=== PATIENT | male | born 1975 | race Caucasian/White ===

== ENCOUNTER 2017-11-28 04:21 | Inpatient (IN) ==
[2017-11-28 05:04] LABS: Baso % (Auto) 0.3 % (0.0-2.0); Eos # (Auto) 0.1 th/mm3 (0.0-0.4); Eos % (Auto) 1.7 % (0.0-4.0); Hematocrit 40.5 % (39.0-51.0); Hemoglobin 14.3 gm/dL (13.0-17.0); Lymph # (Auto) 1.6 th/mm3 (1.0-4.8); Lymph % (Auto) 18.1 % (9.0-44.0); Mean Corpuscular HGB Conc 35.3 % (32.0-36.0); Mean Corpuscular Hemoglobin 31.3 pg (27.0-34.0); Mean Corpuscular Volume 88.7 fL (80.0-100.0); Mean Platelet Volume 9.1 fL (7.0-11.0); Mono # (Auto) 0.5 th/mm3 (0.0-0.9); Mono % (Auto) 5.8 % (0.0-8.0); Neut # (Auto) 6.4 th/mm3 (1.8-7.7); Neut % (Auto) 74.1 % (16.0-70.0); Platelet Count 195 th/mm3 (150-450); Red Blood Count 4.56 mil/mm3 (4.50-5.90); Red Cell Distribution Width 13.3 % (11.6-17.2); White Blood Count 8.6 th/mm3 (4.0-11.0)
[2017-11-28 05:14] LABS: Activated Partial Thrombo Time 21.9 sec (24.3-30.1); Prothrombin Time 10.2 sec (9.8-11.6)
[2017-11-28 05:19] LABS: Alanine Aminotransferase 39 U/L (12-78)
[2017-11-28 05:21] LABS: Alkaline Phosphatase 81 U/L (45-117); Total Protein 7.2 g/dL (6.4-8.2)
[2017-11-28 05:23] LABS: Albumin 3.7 g/dL (3.4-5.0); Anion Gap 10 meq/L (5-15); Aspartate Aminotransferase 38 U/L (15-37); Blood Urea Nitrogen 13 mg/dL (7-18); Calcium 9.3 mg/dL (8.5-10.1); Carbon Dioxide 23.3 meq/L (21.0-32.0); Chloride 111 meq/L (98-107); Glomerular Filtration Rate 56 mL/min (>89); Glucose,Random 131 mg/dL (74-106); Sodium 144 meq/L (136-145)
[2017-11-28] MEDS ORDERED: Sod Chloride 0.9% Inj 1,000 ML IV.SIG ONE (05:29)
[2017-11-28] MEDS ORDERED: Diphtheria/Tetanus/Pertussis Vaccine Inj 0.5 ML Syringe IM ONE (05:40)
[2017-11-28] MEDS ORDERED: ceFAZolin 2 GM Premix Inj 2 GM/50 ML PIGGYBACK IV.SIG ONE (05:41)
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
[2017-11-28] MEDS ORDERED: Morphine Inj 4 MG/ML Vial IV.PUSH PRN (05:50)
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
[2017-11-28] MEDS: Pantoprazole Inj 40 MG Vial IV.PUSH SCH (06:15)
[2017-11-28] MEDS ORDERED: Pantoprazole Inj 40 MG Vial IV.PUSH SCH (07:00)
[2017-11-28] MEDS: Multivitamin Inj 10 ML, Thiamine Inj 100 MG, Folic Acid Inj 1 MG in Sodium Chlor 0.9% I... IV.SIG SCH (09:31)
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
[2017-11-28] MEDS: Sod Chloride 0.9% Inj 1,000 ML IV.CONT SCH ×2 (11:48→19:32)
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
[2017-11-28] MEDS: Morphine Inj 4 MG/ML Vial IV.PUSH PRN ×2 (13:06→21:27)
[2017-11-29] MEDS: Morphine Inj 4 MG/ML Vial IV.PUSH PRN ×2 (08:18→12:47)
[2017-11-29 09:12] LABS: Baso % (Auto) 0.2 % (0.0-2.0); Eos # (Auto) 0.1 th/mm3 (0.0-0.4); Eos % (Auto) 1.4 % (0.0-4.0); Hemoglobin 12.8 gm/dL (13.0-17.0); Lymph # (Auto) 1.2 th/mm3 (1.0-4.8); Lymph % (Auto) 19.8 % (9.0-44.0); Mean Corpuscular HGB Conc 33.8 % (32.0-36.0); Mean Corpuscular Hemoglobin 30.1 pg (27.0-34.0); Mean Corpuscular Volume 89.1 fL (80.0-100.0); Mean Platelet Volume 8.8 fL (7.0-11.0); Mono # (Auto) 0.5 th/mm3 (0.0-0.9); Mono % (Auto) 8.3 % (0.0-8.0); Neut # (Auto) 4.4 th/mm3 (1.8-7.7); Neut % (Auto) 70.3 % (16.0-70.0); Platelet Count 148 th/mm3 (150-450); Red Blood Count 4.27 mil/mm3 (4.50-5.90); Red Cell Distribution Width 13.7 % (11.6-17.2); White Blood Count 6.3 th/mm3 (4.0-11.0)
[2017-11-29 09:29] LABS: Calcium 9.2 mg/dL (8.5-10.1); Carbon Dioxide 26.5 meq/L (21.0-32.0)
[2017-11-29] MEDS: Multivitamin Inj 10 ML, Thiamine Inj 100 MG, Folic Acid Inj 1 MG in Sodium Chlor 0.9% I... IV.SIG SCH (10:22)
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
[2017-11-29] MEDS ORDERED: Lidocaine PF 1% Inj 5 ML Syringe INFILTRATN ONE ×2 (12:00)
[2017-11-29] MEDS ORDERED: Neostigmine Inj 5 MG/5 ML Syringe IV.PUSH ONE ×2 (12:00)
[2017-11-29] MEDS ORDERED: Glycopyrrolate Inj 1 MG/5 ML Syringe IV.PUSH ONE ×2 (12:00)
[2017-11-29] MEDS ORDERED: Succinylcholine Inj 100 MG/5 ML Syringe IV.PUSH ONE ×2 (12:00)
[2017-11-29] MEDS ORDERED: Phenylephrine/NS 1000 MCG/10ML Syringe IV.PUSH ONE ×2 (12:00)
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
[2017-11-29] MEDS ORDERED: *Meperidine Inj 25 MG/ML Vial PERIprocedural Use ONLY ONE (19:53)
[2017-11-29] MEDS ORDERED: fentaNYL Citrate Inj 100 MCG/2 ML Ampul ONE (20:07)
[2017-11-29] MEDS ORDERED: Acetaminophen-HYDROcodone 325/7.5 Liq 15 ML UDC PO PRN (20:15)
[2017-11-29] MEDS ORDERED: *Labetalol HCl Inj 100 MG/20 ML Vial PERIprocedural Use ONLY IV.PUSH ONE (20:37)
[2017-11-29] MEDS ORDERED: *Ondansetron Inj 4 MG/2 ML Vial PERIprocedural Use ONLY ONE (20:37)
[2017-11-29] MEDS ORDERED: Morphine Inj 4 MG/ML Vial IV.PUSH PRN (21:00)
[2017-11-29] MEDS: Dextrose 5%/NaCl 0.45% Inj 1,000 ML IV.SIG SCH (21:02)
[2017-11-29] MEDS: MethylPREDNISolone Sod Succinate Inj 125 MG/2 ML Vial IV.PUSH SCH (22:04)
[2017-11-29] MEDS: Sennosides Liq 8.8 MG/5 ML UDC PO SCH (22:30)
[2017-11-29] MEDS: Chlorhexidine Gluconate 0.12% Liq 15 ML UDC SWISH-SPIT SCH (22:30)
[2017-11-29] MEDS: Pantoprazole Inj 40 MG Vial IV.PUSH SCH (22:30)
[2017-11-29] MEDS: Sod Chloride 0.9% Inj 1,000 ML IV.CONT SCH (22:31)
[2017-11-30] MEDS: Morphine Inj 4 MG/ML Vial IV.PUSH PRN (02:05)
[2017-11-30 05:19] LABS: Hematocrit 39.7 % (39.0-51.0); Hemoglobin 13.6 gm/dL (13.0-17.0)
[2017-11-30] MEDS: Dextrose 5%/NaCl 0.45% Inj 1,000 ML IV.SIG SCH (06:00)
[2017-11-30] MEDS: Pantoprazole Inj 40 MG Vial IV.PUSH SCH (06:00)
[2017-11-30] MEDS: MethylPREDNISolone Sod Succinate Inj 125 MG/2 ML Vial IV.PUSH SCH (06:00)
[2017-11-30] MEDS ORDERED: Acetaminophen-HYDROcodone 325/7.5 Liq 15 ML UDC PO PRN (06:44)
[2017-11-30] MEDS ORDERED: Ketorolac Inj 30 MG/ML (IVP) Vial IV.PUSH PRN (06:47)
[2017-11-30] MEDS: Sod Chloride 0.9% Inj 1,000 ML IV.CONT SCH (07:20)
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
[2017-11-30] MEDS ORDERED: Bacitracin Oint 0.9 GM Packet TOPICAL SCH (09:00)
[2017-11-30] MEDS: Sennosides Liq 8.8 MG/5 ML UDC PO SCH (09:07)
[2017-11-30] MEDS: Chlorhexidine Gluconate 0.12% Liq 15 ML UDC SWISH-SPIT SCH (09:08)
[2017-11-30] MEDS: Multivitamin Inj 10 ML, Thiamine Inj 100 MG, Folic Acid Inj 1 MG in Sodium Chlor 0.9% I... IV.SIG SCH (09:25)
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
== END 2017-11-30 13:55 | disposition home or self-care (01) ==
LOC: NEPC 04:21 → NEDA 05:39 → N03 06:50 → N07 16:24
PROVIDERS: ADMIT Surgery; ATTEND Surgery
PROC: ORIFMAN (2017-11-29 17:30)